=== PATIENT | female | born 1995 | race Caucasian/White ===

== ENCOUNTER 2017-01-23 14:01 | Emergency (ER) | payer SELFPAY | END 2017-01-23 15:50 | disposition home or self-care (01) | LOC: ER1 14:01 | DX: L98.9 Disorder of the skin and subcutaneous tissue, unspecified (principal); F32.9 Major depressive disorder, single episode, unspecified; F17.210 Nicotine dependence, cigarettes, uncomplicated; Z79.899 Other long term (current) drug therapy | CPT/HCPCS: 99283 ==